=== PATIENT | female | born 1990 | race Caucasian/White ===

== ENCOUNTER 2018-01-06 22:59 | Emergency (ER) | payer BC, OTHER ==
--- NOTE | 2018-01-07 00:37 | EDM.PDOC ---
ED HPI GENERAL MEDICAL PROBLEM - General Chief Complaint: Lower Extremity Injury/Pain Stated Complaint: RIGHT FOOT PAIN Time Seen by Provider: 01/07/18 00:50 Source of Information: Reports: Patient History Limitations: Reports: No Limitations - History of Present Illness INITIAL COMMENTS - FREE TEXT/NARRATIVE: The patient states that she was playing softball around 21:45, when she slid into second base, injuring her right ankle. She is otherwise uninjured. No prior right ankle injury. The patient does not have a PCP. Right Ankle Pain Score (Numeric/FACES): 4 - Related Data Allergies Allergy/AdvReac Type Severity Reaction Status Date / Time Sulfa (Sulfonamide Allergy Other Verified 01/06/18 23:20 Antibiotics) Home Meds: Home Meds . 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 ED EXAM, GENERAL - Physical Exam Exam: See Below Exam Limited By: No Limitations General Appearance: Alert, WD/WN, No Apparent Distress Extremities: Other (There is mild swelling to the right lateral malleolus, with no associated erythema, ecchymosis, or abrasion. There is tenderness to the area swelling. There is also some tenderness without visible swelling to the dorsum of the right foot. Neurovascular status of the right lower extremity is intact.) Course - Vital Signs Last Recorded V/S: Last Vital Signs Temp 36.8 C 01/06/18 23:14 Pulse 97 01/06/18 23:14 Resp 18 01/06/18 23:14 BP 127/86 01/06/18 23:14 Pulse Ox 100 01/06/18 23:14 - Re-Assessments/Exams Free Text/Narrative Re-Assessment/Exam: 01/07/18 00:36 4-view radiographs of the right ankle appear to be grossly normal. No fracture or dislocation identified. Formal read per the Radiologist pending. 3-view radiographs of the right foot appear to be grossly normal. No fracture or dislocation identified. Formal read per the Radiologist pending. 01/07/18 01:09 X-ray results discussed with the patient and her friends. The patient appears to have a mild sprain to her right ankle, and strain to the dorsal aspect of her foot. I will have her placed into an Aircast, which I would like her to wear for a week, then begin ambulating without the Aircast, even though she may be a bit sore. I'm recommending she take rvzg-[id number] ibuprofen as needed for discomfort. Departure - Departure Time of Disposition: 01:10 Disposition: Home, Self-Care 01 Condition: Good Clinical Impression: Sprain of right ankle - Discharge Information Instructions: Ankle Sprain, [id number] Referrals: PCP,None [Primary Care Provider] - Forms: ED Department Discharge Additional Instructions: You were seen in the emergency room after injuring your right foot and ankle while sliding into second base. Workup in the ER included x-rays of your right ankle and foot, all of which were normal. There are no broken bones or dislocations. Based on your history and physical examination, you have a mild sprain to your right ankle, and mild strain to the back of your right foot. Elevate and ice her right foot is much as possible over the next 2 days, to help minimize swelling. You have been placed into an Aircast. Apply this each morning, and remove at bedtime. Wear the Aircast for 1 week, then begin ambulating without it, even if you are bit sore. Take lukw-jfg-swisbff ibuprofen as needed for discomfort. If any other problems, please do not hesitate to return to the ER.
--- NOTE | 2018-01-07 07:42 | CR ---
Right ankle: Four views of the right ankle were obtained. Comparison: No previous ankle study. Ankle mortise is symmetric. No fracture, dislocation or other bony abnormality is seen. Impression: 1. No abnormality is identified on right ankle exam. Diagnostic code #1
--- NOTE | 2018-01-07 07:42 | CR ---
Right foot: Three views of the right foot were obtained. Comparison: No prior right foot exam. Ununited os naviculare is incidentally noted. Joint spaces are maintained. No fracture, dislocation or other bony abnormality is seen. Small calcification is noted off the tarsometatarsal junction on the lateral view which is normal variant. Impression: 1. Incidental findings. Nothing acute is appreciated on right foot study. Diagnostic code #2
== END 2018-01-07 01:30 | disposition home or self-care (01) ==
LOC: JD.ED 22:59
DX: S93.401A Sprain of unspecified ligament of right ankle, initial encounter (principal); Z88.2 Allergy status to sulfonamides; X58.XXXA Exposure to other specified factors, initial encounter; Y93.64 Activity, baseball
CPT/HCPCS: 73610-26-RT; 73610-RT; 73630-26-RT; 73630-RT; 99283

== ENCOUNTER 2018-08-09 07:19 | Emergency (ER) | payer BC ==
--- NOTE | 2018-08-09 08:15 | EDM.PDOC ---
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 LMP (6 weeks 0 days by dates), . Blood type O-positive. She states that she has had 4 positive home tests. She states that she developed painless spotting last night, that got progressively heavier. She states that she is not passing clots, although is unable to estimate her bleeding with respect to the number of pads per hour. She developed pelvic cramping around 07:00 this morning, which has persisted. No recent fever, nausea, vomiting, constipation, diarrhea, or urinary symptoms. No symptoms with prior . The patient's Computer Forensic Specialist is Dr. Jane, although she has not yet seen him for this . - Related Data Allergies Allergy/AdvReac Type Severity Reaction Status Date / Time Sulfa (Sulfonamide Allergy Other Verified 08/09/18 07:33 Antibiotics) Home Meds: Home Meds . 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: : 2 Para: 1 - Past Surgical History HEENT Surgical History: Reports: Myringotomy w Tube(s) (bilateral), Tonsillectomy Female Surgical History: Reports: Cystoscopy (at 9 years old) Social & Family History - Family History Family Medical History: Noncontributory - Tobacco Use Smoking Status *Q: Never Smoker Second Hand Smoke Exposure: No - Caffeine Use Caffeine Use: Reports: Coffee, Soda - Alcohol Use Alcohol Use History: Yes Alcohol Use Frequency: Rarely - Recreational Drug Use Recreational Drug Use: No - Living Situation & Occupation Living situation: Reports: , with Significant Other (Boyfriend) 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 ED EXAM - Physical Exam Exam: See Below Exam Limited By: No Limitations General Appearance: Alert, WD/WN, No Apparent Distress Eye Exam: Bilateral Eye: EOMI, Normal Inspection Ears: Normal External Exam, Hearing Grossly Normal Nose: Normal Inspection Throat/Mouth: Normal Inspection, Normal Lips, Normal Voice, No Airway Compromise Head: Atraumatic, Normocephalic Neck: Normal Inspection, Full Range of Motion Respiratory/Chest: No Respiratory Distress, Lungs Clear, Normal Breath Sounds, No Accessory Muscle Use Cardiovascular: Normal Peripheral Pulses, Regular Rate, Rhythm, No Edema, No Gallop, No JVD, No Murmur, No Rub GI/Abdominal Exam: Normal Bowel Sounds, Soft, No Organomegaly, No Distention, No Abnormal Bruit, No Mass, Tender (Minimal suprapubic only. Nontender elsewhere.) Rectal Exam: Deferred (Female) Exam: Normal External Exam, Vaginal Bleeding (very slight). No: Tissue Present in Cervix/Vagina, Vaginal Discharge, Vaginal Lesions, Vaginal Tears Back Exam: Normal Inspection, Full Range of Motion, NT Extremities: Normal Inspection, Normal Range of Motion, No Pedal Edema, Normal Capillary Refill Neurological: Alert, Oriented, Normal Cognition, No Motor/Sensory Deficits Psychiatric: Normal Affect Skin Exam: Warm, Dry, Intact, Normal Color, No Rash Course - Vital Signs Last Recorded V/S: Last Vital Signs Temp 37.4 C 08/09/18 07:30 Pulse 88 08/09/18 07:30 Resp 16 08/09/18 07:30 BP 133/94 H 08/09/18 07:30 Pulse Ox 99 08/09/18 07:30 - Orders/Labs/Meds Orders: Active Orders 24 hr Category Date Time Status HCG QUANTITATIVE [CHEM] Stat Lab 08/09/18 08:55 Received - Re-Assessments/Exams Free Text/Narrative Re-Assessment/Exam: 08/09/18 08:14 The patient is 5 weeks 6 days gestation by dates, now with vaginal bleeding that includes passing clots, and pelvic cramping. I have ordered a quantitative hCG, and a transvaginal ultrasound, to rule out an ectopic , as well as to evaluate for an intrauterine gestational sac. The patient's blood type is O-positive, therefore RhoGAM is not indicated. 08/09/18 09:42 Transvaginal ultrasound is read by Dr. Lerma as: 1. Small cyst within the right ovary measuring 1.6 cm. 2. No intrauterine gestational is seen. No adnexal abnormalities are seen. With positive test, differential includes too early to see, miscarriage as well as nonvisualized (unlikely) ectopic . Note: Recommend serial beta hCGs and if increasing, recommend repeat pelvic ultrasound. 08/09/18 09:45 The laboratory has received the patient's blood sample, to run a quantitative hCG, however, they are experiencing some technical difficulties. It is not clear when the test will be resulted. 08/09/18 11:[address] Jane at 10:58. He would like me to perform a pelvic exam , to see if there is any tissue stuck in the cervix, and if so, to remove it. He would also like me to estimate the amount of bleeding. If it appears to be significant, and to call him back, as he may want to consider performing a D&C. In the meantime, he will have his office order an outpatient quantitative hCG for 08/12/2018, 08/16/2018, 08/19/2018, and 08/23/2018. He would then like to have the patient follow-up in his office this coming , 08/12/2018. The above plan was discussed with the patient, who is agreeable. 08/09/18 12:11 On pelvic examination, there was a small amount of both fresh and old appearing blood in the vagina. After cleaning the vagina with gauze, there appears to be a very small trickle of blood emanating from her closed, parous cervical os. No tissue was found in the vagina or cervical os. The quantitative hCG is still not back. Based on her history and physical examination, the patient has most likely suffered a completed spontaneous . As above, I will discharge the patient home, to follow-up with Dr. Jane this coming , 08/12/2018. I advised the patient to try to have her outpatient quantitative hCG drawn before she sees Dr. Jane, so that he can see both of the results. Departure - Departure Time of Disposition: 12:17 Disposition: Home, Self-Care 01 Condition: Good Clinical Impression: Complete spontaneous - Discharge Information *PRESCRIPTION DRUG MONITORING PROGRAM REVIEWED*: Not Applicable *COPY OF PRESCRIPTION DRUG MONITORING REPORT IN PATIENT RONN: Not Applicable Referrals: Manny Jane MD [Physician] - Forms: ED Department Discharge Additional Instructions: You were seen in the emergency room for vaginal bleeding and pelvic cramps while . Workup in the ER included a pelvic ultrasound, which showed a 1.6 cm right ovarian cyst, no intrauterine , and no ectopic , strongly suggesting that you have suffered a miscarriage. A quantitative hCG was ordered, but has not yet returned, due to technical problems in the lab. Your case was discussed with Dr. Jane. His office will order outpatient quantitative hCGs for , 08/12/2018, 08/16/2018, , 2018, and 08/23/2018. Dr. Jane would like you to follow up with him this coming , 08/12/2018. We recommend that you get your blood drawn at least one hour prior to seeing Dr. Jane, so that he can consider your test results when you see him. If any other problems, including increasing vaginal bleeding or pain, please do not hesitate to return to the ER. - My Orders Last 24 Hours: My Active Orders 08/09/18 08:55 HCG QUANTITATIVE [CHEM] Stat - Assessment/Plan Last 24 Hours: My Active Orders 08/09/18 08:55 HCG QUANTITATIVE [CHEM] Stat
--- NOTE | 2018-08-09 09:33 | US ---
First trimester obstetrical ultrasound: Multiple real-time images were obtained transvaginally. No intrauterine gestational sac is seen. Endometrial thickness is normal at 8 mm. Incidental nabothian cyst is present. Right ovary shows a cyst measuring 1.6 cm. No adnexal abnormalities are appreciated at this time. No free fluid is seen. Impression: 1. Small cyst within the right ovary measuring 1.6 cm. 2. No intrauterine gestational is seen. No adnexal abnormalities are seen. With positive test, differential includes too early to see, miscarriage as well as nonvisualized (unlikely) ectopic . Note: Recommend serial beta-hCGs and if increasing, recommend repeat pelvic ultrasound. Diagnostic code #2
== END 2018-08-09 12:27 | disposition home or self-care (01) ==
LOC: JD.ED 07:19
DX: O03.9 Complete or unspecified spontaneous abortion without complication (principal); Z88.2 Allergy status to sulfonamides; Z96.22 Myringotomy tube(s) status; Z90.89 Acquired absence of other organs; Z98.890 Other specified postprocedural states
CPT/HCPCS: 36415; 76817; 76817-26; 84702; 99282; 99284-25

== ENCOUNTER 2018-12-29 17:00 | Emergency (ER) | payer BC ==
[2018-12-29] MEDS ORDERED: Ondansetron 4 MG Tab.DIS PO ONE (18:04)
[2018-12-29] MEDS ORDERED: Acetaminophen/HYDROcodone 325-5 MG Tab PO ONE (18:04)
--- NOTE | 2018-12-29 18:08 | EDM.PDOC ---
ED HPI GENERAL MEDICAL PROBLEM - General Chief Complaint: Lower Extremity Injury/Pain Stated Complaint: FOOT PAIN Time Seen by Provider: 12/29/18 17:54 Source of Information: Reports: Patient, RN Notes Reviewed History Limitations: Reports: No Limitations - History of Present Illness INITIAL COMMENTS - FREE TEXT/NARRATIVE: The patient states that she drove from [place] today, getting out of the car periodically to walk around and stretch. It is noted that she is wearing flip-flops. She states that she developed left foot pain around 15:30, after tripping and falling onto her right leg. The pain is felt to the lateral aspect of her left foot, both dorsal and plantar, extending to the lateral aspect of her heel. It does not extend to her ankle or leg, however, she reports painful left ankle ROM. She does not recall injury to her left foot when she fell, or at any other time. No prior similar symptoms. No wkni-yyo-[id number] or home remedies for her symptoms thus far. The patient's PCP is ANA Mistry. Her Body Shop Manager is Dr. Manny Jane. 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: , Spontaneous (x 1) : 2 Para: 1 - Past Surgical History HEENT Surgical History: Reports: Myringotomy w Tube(s) (bilateral), Tonsillectomy Female Surgical History: Reports: Cystoscopy (at 9 years old) Social & Family History - Family History Family Medical History: Noncontributory - Tobacco Use Smoking Status *Q: Never Smoker Second Hand Smoke Exposure: No - Caffeine Use Caffeine Use: Reports: Coffee - Alcohol Use Alcohol Use History: Yes Alcohol Use Frequency: Rarely - Recreational Drug Use Recreational Drug Use: No - Living Situation & Occupation Living situation: Reports: , with Significant Other (Boyfriend), with Family (Daughter) 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 ED EXAM, GENERAL - Physical Exam Exam: See Below Exam Limited By: No Limitations General Appearance: Alert, WD/WN, Mild Distress (Appears uncomfortable) Extremities: Other (Mild swelling to the lateral aspect of the patient's left foot, particularly dorsal lateral aspect. There is considerable tenderness to palpation along the lateral aspect of the foot, both on the dorsal as well as plantar aspect, with less tenderness to the dorsal aspect of the foot. Pain is induced in the foot with both passive and active ROM at the ankle. The patient reports a tingling sensation to the lateral aspect of her foot, otherwise, the neurovascular status of the left lower extremity appears to be intact. An approximately 8 cm x 4 cm abrasion is noted to the anterior right leg.) Course - Vital Signs Last Recorded V/S: Last Vital Signs Temp 36.9 C 12/29/18 17:17 Pulse 81 12/29/18 17:17 Resp 18 12/29/18 17:17 BP 137/81 12/29/18 17:17 Pulse Ox 99 12/29/18 17:17 - Orders/Labs/Meds Meds: Medications Discontinued Medications Generic Name Dose Route Start Last Admin Trade Name Sybil PRN Reason Stop Dose Admin Hydrocodone Bitart/Acetaminophen 2 tab 12/29/18 18:04 12/29/18 18:23 Copake 325-5 Mg PO 12/29/18 18:05 2 tab ONETIME ONE Administration Ondansetron HCl 4 mg 12/29/18 18:04 12/29/18 18:22 Zofran Odt PO 12/29/18 18:05 4 mg ONETIME ONE Administration - Re-Assessments/Exams Free Text/Narrative Re-Assessment/Exam: 12/29/18 18:04 The patient's history and physical examination are most consistent with a stress fracture. While the patient does not recall a traumatic event to her left foot, she did fall earlier today, injuring her right leg, and she reports that she walked around from time to time, while driving back from [place] while wearing sandals. It is possible that she inadvertently stepped on a stone and fractured her left 5th metatarsal. I have ordered x-rays to evaluate. 12/29/18 20:15 4-view radiographs of the left foot appear to be normal. No fracture or dislocation identified. Formal read per the Radiologist pending. X-ray results discussed with the patient. The cause of her left foot pain is unclear. Since there is no fracture, the patient does not require a splint, however, I will fit her for crutches. She will receive her a prescription for some Copake and Zofran. I would like her to contact the office of Dr. Taylor in the morning, to make an appointment to be seen as soon as possible. Departure - Departure Time of Disposition: 20:18 Disposition: Home, Self-Care 01 Condition: Good Clinical Impression: Left foot pain - Discharge Information *PRESCRIPTION DRUG MONITORING PROGRAM REVIEWED*: Not Applicable *COPY OF PRESCRIPTION DRUG MONITORING REPORT IN PATIENT RONN: Not Applicable Prescriptions: Acetaminophen/HYDROcodone [Copake 325-5 MG] 1 - 2 tab PO Q6H PRN #12 tablet PRN Reason: Pain (Severe 7-10) Ondansetron [Zofran ODT] 1 tab PO Q8H PRN #10 tab.dis PRN Reason: Nausea/Vomiting Instructions: Ankle Sprain, [id number] Referrals: Juan Taylor MD [Physician] - Kecia Baron PA-C [Primary Care Provider] - Manny Jane MD [Physician] - Forms: ED Department Discharge Additional Instructions: You were seen in the emergency room for left foot pain and mild swelling. Workup in the ER included x-rays of your left foot, which returned normal. No fracture or dislocation was seen. The cause of your foot pain is unclear. We recommend that you ice and elevate your left foot as much as possible. You have been fitted with crutches. Use them whenever you need to get around. Take hgzr-[id number] ibuprofen, 2-3 tablets (400-600 mg) every 8 hours, with food, as needed for discomfort. You may take 1-2 tablets of the prescription opioid Copake up to every 6 hours, as needed for pain not relieved by ibuprofen. If you take Copake, do not drive for 10 hours afterwards. Copake may cause constipation, so consider taking a stool softener. Dissolve one tablet of the anti-nausea medicine Zofran on your tongue up to every 8 hours, as needed for nausea/vomiting. Follow-up with the Orthopedic Surgeon Dr. Juan Taylor at the next available appointment, for further evaluation. If any other problems, please do not hesitate to return to the ER.
--- NOTE | 2018-12-30 08:57 | CR ---
Left foot: Four views of the left foot were obtained. Comparison: No prior left foot exam. Joint spaces are preserved. No fracture, dislocation or other bony abnormality is seen. No periosteal reaction is seen. Impression: 1. No abnormality is identified on left foot exam. If patient remains symptomatic, recommend repeat study in 10-14 days. Diagnostic code #1
== END 2018-12-29 20:55 | disposition home or self-care (01) ==
LOC: JD.ED 17:00
DX: M79.672 Pain in left foot (principal); Z88.2 Allergy status to sulfonamides
CPT/HCPCS: 73630; 99283; A9270

== ENCOUNTER 2021-07-09 11:31 | Emergency (ER) | payer BC ==
[2021-07-09] MEDS ORDERED: Sodium Chloride 0.9% 10 ML Syringe FLUSH PRN (12:05)
[2021-07-09] MEDS ORDERED: Ondansetron 4 MG/2 ML SDV IVPUSH ONE (12:05)
[2021-07-09] MEDS ORDERED: Metoclopramide 10 MG/2 ML SDV IVPUSH ONE (12:10)
--- NOTE | 2021-07-09 12:11 | EDM.PDOC ---
ED HPI GENERAL MEDICAL PROBLEM - General Chief Complaint: Gastrointestinal Problem Stated Complaint: HEART PALP VOMITING SHAKEY Time Seen by Provider: 07/09/21 12:01 Source of Information: Reports: Patient, RN Notes Reviewed History Limitations: Reports: No Limitations - History of Present Illness INITIAL COMMENTS - FREE TEXT/NARRATIVE: Patient is a 30-year-old female who presents to the ER for evaluation of her GI distress. Patient states she is about 9 weeks . She is not having any abdomen pain, or any sort of vaginal bleeding or discharge. States that for the past 2 or 3 days, she has not been able to keep down anything much for food or fluid she has been trying to eat toast and keep hydrated with water, but nothing has stayed down. E[employer]K [employer]PER[employer] is Dr. Powell, and she is on Unisom at night for nausea. Patient states she is feel dizzy, lightheaded, had some slight heart palpitations, states that she has a sore throat but states she has been vomiting quite a bit and getting green bile type emesis out. Having some loose stools again that is green and bilious. 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 No fevers but chills, no cough no shortness of breath. 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 - Past Surgical History HEENT Surgical History: Reports: Myringotomy w Tube(s), Tonsillectomy Female Surgical History: Reports: Cystoscopy Other Female Surgeries/Procedures: bladder surgery Social & Family History - Family History Family Medical History: No Pertinent Family History - Tobacco Use Tobacco Use Status *Q: Never Tobacco User Second Hand Smoke Exposure: No - Caffeine Use Caffeine Use: Reports: Coffee - Recreational Drug Use Recreational Drug Use: No - Living Situation & Occupation Living situation: Reports: , with Significant Other (Boyfriend), with Family (Daughter) 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 ED EXAM, GI/ABD - Physical Exam Exam: See Below Exam Limited By: No Limitations General Appearance: Alert, WD/WN, No Apparent Distress Respiratory/Chest: No Respiratory Distress, Lungs Clear, Normal Breath Sounds, No Accessory Muscle Use, Chest Non-Tender Cardiovascular: Normal Peripheral Pulses, Regular Rate, Rhythm, No Edema GI/Abdominal Exam: Normal Bowel Sounds, Soft, No Distention, No Mass, Tender (generalized discomfort) Extremities: Normal Inspection, Normal Capillary Refill Neurological: Alert, Oriented, Normal Cognition, No Motor/Sensory Deficits Psychiatric: Normal Affect, Normal Mood Skin Exam: Warm, Dry, Intact, Normal Color, No Rash Course - Vital Signs Last Recorded V/S: Last Vital Signs Temp 97.5 F 07/09/21 11:44 Pulse 92 07/09/21 11:44 Resp 16 07/09/21 11:44 BP 123/85 07/09/21 11:44 Pulse Ox 100 07/09/21 11:44 - Orders/Labs/Meds Orders: Active Orders 24 hr Category Date Time Status Peripheral IV Care [RC] . DIRECTED Care 07/09/21 12:06 Ordered Sodium Chloride 0.9% [Normal Saline] 1,000 ml Med 07/09/21 12:15 Ordered IV ASDIRECTED Sodium Chloride 0.9% [Saline Flush] Med 07/09/21 21:00 Ordered 10 ml FLUSH 0900,2100 Sodium Chloride 0.9% [Saline Flush] Med 07/09/21 12:05 Ordered 10 ml FLUSH ASDIRECTED PRN Peripheral IV Insertion Adult [OM.PC] Stat Oth 07/09/21 12:05 Ordered Medication Orders Sodium Chloride (Normal Saline) 1,000 mls @ 999 mls/hr IV ASDIRECTED MACARIO Last Admin: 07/09/21 12:20 Dose: 999 mls/hr Documented by: [email or web address] Sodium Chloride (Sodium Chloride 0.9% 10 Ml Syringe) 10 ml FLUSH 0900,2100 MACARIO Sodium Chloride (Sodium Chloride 0.9% 10 Ml Syringe) 10 ml FLUSH ASDIRECTED PRN PRN Reason: Keep Vein Open Last Admin: 07/09/21 12:20 Dose: 10 ml Documented by: [id number] Labs: Laboratory Tests 07/09/21 07/09/21 Range/Units 12:26 12:26 WBC 11.87 H (3.98-10.04) K/mm3 RBC 4.67 (3.98-5.22) M/mm3 Hgb 13.6 (11.2-15.7) gm/dl Hct 39.5 (34.1-44.9) % MCV 84.6 (79.4-94.8) fl MCH 29.1 (25.6-32.2) pg MCHC 34.4 (32.2-35.5) g/dl RDW Std Deviation 37.4 (36.4-46.3) fL Plt Count 189 (182-369) K/mm3 MPV 8.5 L (9.4-12.3) fl Neut % (Auto) 78.4 H (34.0-71.1) % Lymph % (Auto) 12.0 L (19.3-51.7) % Milam % (Auto) 8.8 (4.7-12.5) % Eos % (Auto) 0.3 L (0.7-5.8) Baso % (Auto) 0.2 (0.1-1.2) % Neut # (Auto) 9.33 H (1.56-6.13) K/mm3 Lymph # (Auto) 1.42 (1.18-3.74) K/mm3 Milam # (Auto) 1.04 H (0.24-0.36) K/mm3 Eos # (Auto) 0.03 L (0.04-0.36) K/mm3 Baso # (Auto) 0.02 (0.01-0.08) K/mm3 Sodium 140 (136-145) mEq/L Potassium 3.6 (3.5-5.1) mEq/L Chloride 104 (98-107) mEq/L Carbon Dioxide 25 (21-32) mEq/L Anion Gap 14.6 (5-15) BUN 12 (7-18) mg/dL Creatinine 0.7 (0.55-1.02) mg/dL Est Cr Clr Drug Dosing TNP Estimated GFR (MDRD) > 60 (>60) mL/min BUN/Creatinine Ratio 17.1 (14-18) Glucose 84 (70-99) mg/dL Calcium 8.7 (8.5-10.1) mg/dL Total Bilirubin 0.6 (0.2-1.0) mg/dL AST 16 (15-37) U/L ALT 21 (14-59) U/L Alkaline Phosphatase 61 (46-116) U/L C-Reactive Protein 0.5 (<1.0) mg/dL Total Protein 7.1 (6.4-8.2) g/dl Albumin 3.9 (3.4-5.0) g/dl Globulin 3.2 gm/dL Albumin/Globulin Ratio 1.2 (1-2) Lipase 41 L (73-393) U/L Meds: Medications Generic Name Dose Route Start Last Admin Trade Name Sybil PRN Reason Stop Dose Admin Sodium Chloride 1,000 mls @ 999 mls/hr 07/09/21 12:15 07/09/21 12:20 Normal Saline IV 999 mls/hr ASDIRECTED MACARIO Administration Sodium Chloride 10 ml 07/09/21 21:00 Sodium Chloride 0.9% 10 Ml Syringe FLUSH 0900,2100 MACARIO Sodium Chloride 10 ml 07/09/21 12:05 07/09/21 12:20 Sodium Chloride 0.9% 10 Ml Syringe FLUSH 10 ml ASDIRECTED PRN Administration Keep Vein Open Discontinued Medications Generic Name Dose Route Start Last Admin Trade Name Sybil PRN Reason Stop Dose Admin Metoclopramide HCl 10 mg 07/09/21 12:10 07/09/21 12:20 Metoclopramide 10 Mg/2 Ml Sdv IVPUSH 07/09/21 12:11 10 mg ONETIME ONE Administration Ondansetron HCl 4 mg 07/09/21 12:05 07/09/21 12:41 Ondansetron 4 Mg/2 Ml Sdv IVPUSH 07/09/21 12:06 Not Given ONETIME ONE - Re-Assessments/Exams Free Text/Narrative Re-Assessment/Exam: 07/09/21 12:10 Patient presents to the ER for evaluation of her nausea and vomiting and other GI issues. We will go ahead and get IV started give her some fluids, check some labs and get her something for nausea hopefully this can keep it under control. 12/14/21 13:26 Patient states she is feeling better after the Reglan and fluids. Labs are all unremarkable at this time. We will go ahead and get the patient home and she would like to go home and rest. I will give her a prescription for Reglan and she will have to follow-up with Dr. Powell for continuation of this. Patient verbalized understanding. Departure - Departure Time of Disposition: 13:28 Disposition: Home, Self-Care 01 Condition: Good Clinical Impression: Nausea and vomiting Qualifiers: Vomiting type: bilious vomiting Qualified Code(s): R11.14 - Bilious vomiting - Discharge Information *PRESCRIPTION DRUG MONITORING PROGRAM REVIEWED*: No *COPY OF PRESCRIPTION DRUG MONITORING REPORT IN PATIENT RONN: No Instructions: Nausea and Vomiting, Adult, [id number] Referrals: Alfred Powell MD [Primary Care Provider] - Forms: ED Department Discharge Additional Instructions: You have been evaluated in the ED for nausea/vomiting/diarrhea. You have received IV fluid in the ED to help with the dehydration from the vomiting and diarrhea. Over the next 24-48 hours please try to limit diet to clear liquids and advance as tolerated to a bland diet to alleviate symptoms of nausea/vomiting/diarrhea. You were given a prescription for Reglan, this is an antinausea medication that you may take up to 4 times a day as needed for ongoing nausea. Since you are having quite exquisite nausea and vomiting I would recommend that you at least t fay it over the next few days while you are feeling at your worst, to make sure that you can indeed keep food and fluids down. This medication was electronically sent to the [facility] pharmacy located on [address]. 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 Please return to the ED if your symptoms should change or worsen. Sepsis Event Note (ED) - Evaluation Sepsis Screening Result: No Definite Risk - Focused Exam Vital Signs: Vital Signs Temp Pulse Resp BP Pulse Ox 07/09/21 11:44 97.5 F 92 16 123/85 100 - My Orders Last 24 Hours: My Active Orders 07/09/21 12:05 Sodium Chloride 0.9% [Saline Flush] 10 ml FLUSH ASDIRECTED PRN Peripheral IV Insertion Adult [OM.PC] Stat 07/09/21 12:06 Peripheral IV Care [RC] . DIRECTED 07/09/21 12:15 Sodium Chloride 0.9% [Normal Saline] 1,000 ml IV ASDIRECTED 07/09/21 21:00 Sodium Chloride 0.9% [Saline Flush] 10 ml FLUSH 0900,2099 - Assessment/Plan Last 24 Hours: My Active Orders 07/09/21 12:05 Sodium Chloride 0.9% [Saline Flush] 10 ml FLUSH ASDIRECTED PRN Peripheral IV Insertion Adult [OM.PC] Stat 07/09/21 12:06 Peripheral IV Care [RC] . DIRECTED 07/09/21 12:15 Sodium Chloride 0.9% [Normal Saline] 1,000 ml IV ASDIRECTED 07/09/21 21:00 Sodium Chloride 0.9% [Saline Flush] 10 ml FLUSH 899,2099
[2021-07-09] MEDS ORDERED: Sodium Chloride 0.9% 1,000 ML IV SCH (12:15)
[2021-07-09] MEDS ORDERED: Sodium Chloride 0.9% 10 ML Syringe FLUSH SCH (21:00)
== END 2021-07-09 14:21 | disposition home or self-care (01) ==
LOC: JD.ED 11:31
DX: O21.9 Vomiting of pregnancy, unspecified (principal); Z88.2 Allergy status to sulfonamides
CPT/HCPCS: 36415; 80053; 83690; 85025; 86140; 96374; 99284; J2765; J7030

== ENCOUNTER 2022-02-11 08:00 | Inpatient (IN) | payer BC ==
[2022-02-13] MEDS ORDERED: Lactated Ringers 1,000 ML IV SCH (05:30)
[2022-02-13] MEDS ORDERED: Sodium Chloride 0.9% 10 ML Syringe FLUSH PRN (06:00)
[2022-02-13] MEDS ORDERED: Citric Acid/Sodium Citrate Solution 30 ML Cup PO ONE (06:00)
[2022-02-13] MEDS ORDERED: Metoclopramide 10 MG/2 ML SDV IVPUSH ONE (06:00)
[2022-02-13] MEDS ORDERED: Ondansetron 4 MG/2 ML SDV ONE (06:42)
[2022-02-13] MEDS ORDERED: Oxytocin 10 Units/1 ML SDV ONE ×2 (06:42→06:43)
[2022-02-13] MEDS ORDERED: Lactated Ringers 2,000 ML ONE (06:42)
[2022-02-13] MEDS ORDERED: Ketorolac 30 MG/ML SDV ONE (06:42)
[2022-02-13] MEDS ORDERED: Morphine PF 10 MG/10 ML SDV ONE (06:45)
[2022-02-13] MEDS ORDERED: ceFAZolin 2 GM in Sodium Chloride 0.9% 50 ML IV ONE (07:30)
[2022-02-13] MEDS ORDERED: Oxytocin/Lactated Ringers 20 UNIT/1,000 ML BAG IV SCH (08:00)
[2022-02-13] MEDS ORDERED: HYDROmorphone 0.5 MG/0.5 ML Syringe IVPUSH PRN (08:12)
[2022-02-13] MEDS ORDERED: fentaNYL 100 MCG/2 ML SDV IVPUSH PRN (08:12)
[2022-02-13] MEDS ORDERED: Ondansetron 4 MG/2 ML SDV IVPUSH PRN (08:12)
[2022-02-13] MEDS ORDERED: Bupivacaine 0.5% 30 ML SDV ONE (08:25)
[2022-02-13] MEDS ORDERED: Ondansetron 4 MG/2 ML SDV IV PRN (12:50)
[2022-02-13] MEDS ORDERED: Dextrose 5%-Lactated Ringers 1,000 ML IV SCH (12:50)
[2022-02-13] MEDS ORDERED: Naloxone 0.4 MG/ML SDV IVPUSH PRN (12:50)
[2022-02-13] MEDS ORDERED: diphenhydrAMINE 50 MG/ML SDV IVPUSH PRN (12:50)
[2022-02-13] MEDS ORDERED: ePHEDrine 50 MG/ML SDV IVPUSH PRN (12:50)
[2022-02-13] MEDS ORDERED: Acetaminophen/oxyCODONE 325-5 MG Tab PO PRN (12:50)
[2022-02-13] MEDS: Simethicone 80 MG Tab.Chew PO SCH ×3 (18:28→21:18)
[2022-02-13] MEDS: Docusate Sodium 100 MG Cap PO SCH ×2 (18:30→21:18)
[2022-02-13] MEDS: Ibuprofen 600 MG Tab PO PRN (21:19)
[2022-02-14] MEDS: Acetaminophen/oxyCODONE 325-5 MG Tab PO PRN ×3 (04:33→20:47)
[2022-02-14] MEDS: Docusate Sodium 100 MG Cap PO SCH ×3 (05:27→20:48)
[2022-02-14] MEDS: Prenatal Multivitamin with Calcium/Folic Acid/Iron Tab PO SCH (10:58)
[2022-02-14] MEDS: Simethicone 80 MG Tab.Chew PO SCH ×4 (10:58→20:48)
[2022-02-14] MEDS: Sodium Chloride 0.9% 10 ML Syringe FLUSH SCH (12:23)
[2022-02-14] MEDS: Ibuprofen 600 MG Tab PO PRN ×2 (13:59→17:25)
[2022-02-15] MEDS: Ibuprofen 600 MG Tab PO PRN ×2 (00:03→07:01)
[2022-02-15] MEDS: Acetaminophen/oxyCODONE 325-5 MG Tab PO PRN ×3 (01:00→09:53)
[2022-02-15] MEDS: Simethicone 80 MG Tab.Chew PO SCH ×2 (09:52→14:14)
[2022-02-15] MEDS: Prenatal Multivitamin with Calcium/Folic Acid/Iron Tab PO SCH (09:52)
[2022-02-15] MEDS: Docusate Sodium 100 MG Cap PO SCH (09:52)
== END 2022-02-15 12:20 | disposition home or self-care (01) | DRG 540 ==
LOC: JD.OB 02-13 05:06
PROVIDERS: ADMIT Obstetrics & Gynecology; ATTEND Obstetrics & Gynecology
PROC: 10D00Z1 Extraction of Products of Conception, Low, Open Approach (ICD-10-PCS; principal; 2022-02-13)
DX: O80 Encounter for full-term uncomplicated delivery (principal); Z87.59 Personal history of other complications of pregnancy, childbirth and the puerperium; Z92.89 Personal history of other medical treatment; Z88.2 Allergy status to sulfonamides; Z79.82 Long term (current) use of aspirin; Z3A.39 39 weeks gestation of pregnancy; Z37.0 Single live birth
CPT/HCPCS: 36415; 59025; 85025; 86592; 86850; 86900; 86901; A9270-GY; J1885; J2274; J2405; J2590; J2765; J3490; J7120; J7121

== ENCOUNTER 2022-07-06 01:49 | Emergency (ER) | payer BC | END 2022-07-06 03:00 | disposition home or self-care (01) | LOC: JD.ED 01:49 | DX: H65.03 Acute serous otitis media, bilateral (principal); Z88.2 Allergy status to sulfonamides; Z79.899 Other long term (current) drug therapy | CPT/HCPCS: 99282 ==

== ENCOUNTER 2024-04-15 05:27 | Inpatient (IN) | payer BC ==
[2024-04-15] MEDS: Ketorolac 15 MG/ML SDV IVPUSH ONE (06:33)
[2024-04-15] MEDS: Sodium Chloride 0.9% 1,000 ML IV ONE (06:33)
[2024-04-15] MEDS: Iopamidol 612 MG/ML 100 ML Bottle IVPUSH ONE (06:46)
[2024-04-15 07:00] LABS: BASOPHILS PERCENT AUTO 0.3 % (0.0-1.0); EOSINOPHILS PERCENT AUTO 0.4 % (0.0-6.0); HEMATOCRIT 46.1 % (37.0-47.0); IMMATURE GRAN ABSOLUTE AUTO 0.04 K/mm3 (0.00-0.05); IMMATURE GRAN PERCENT AUTO 0.4 % (0.0-0.4); LYMPHOCYTES ABSOLUTE AUTO 1.5 K/mm3 (1.0-4.8); MEAN CORPUSCULAR HEMOGLOBIN 26.1 pg (28.0-32.0); MEAN CORPUSCULAR HGB CONC 32.3 g/dl (32.0-36.0); MEAN PLATELET VOLUME 8.5 fl (9.4-12.3); MONOCYTES ABSOLUTE AUTO 0.5 K/mm3 (0.0-0.8); NEUTROPHILS ABSOLUTE AUTO 7.5 K/mm3 (1.8-7.7); NEUTROPHILS PERCENT AUTO 77.9 % (41.0-71.0); RED BLOOD CELL COUNT 5.71 M/mm3 (4.10-5.30); WHITE BLOOD CELL COUNT,WBC 9.59 K/mm3 (3.9-11.3)
[2024-04-15 07:05] LABS: HEMOGLOBIN 14.9 gm/dl (12.0-16.0); MEAN CORPUSCULAR VOLUME 80.7 fl (83.0-99.0); PLATELET COUNT,PLT 201 K/mm3 (150-400)
[2024-04-15 07:06] LABS: A/G RATIO 1.1 (1-2); ALANINE AMINOTRANSFERASE,ALT 24 U/L (14-59); ALBUMIN 4.2 g/dl (3.4-5.0); ALKALINE PHOSPHATASE 93 U/L (46-116); ANION GAP 13.8 (5-15); ASPARTATE AMNIOTRANSFERASE,AST 17 U/L (15-37); BILIRUBIN TOTAL 0.5 mg/dL (0.2-1.0); BLOOD UREA NITROGEN,BUN 18 mg/dL (7-18); CALCIUM 9.6 mg/dL (8.5-10.1); CARBON DIOXIDE,CO2 26 mEq/L (21-32); CHLORIDE,CL 107 mEq/L (98-107); CREATININE 0.9 mg/dL (0.55-1.02); ESTIMATED GFR 87 mL/min (>60); GLUCOSE RANDOM 102 mg/dL (70-99); LIPASE 22 U/L (16-77); MAGNESIUM 1.8 mg/dL (1.8-2.4); POTASSIUM,K 3.8 mEq/L (3.5-5.1); PROTEIN TOTAL,TP 8.2 g/dl (6.4-8.2); SODIUM,NA 143 mEq/L (136-145)
[2024-04-15 07:33] LABS: APPEARANCE,URINE CLEAR (Clear); BILIRUBIN,URINE NEGATIVE (Negative); COLOR,URINE YELLOW (Yellow); GLUCOSE,URINE NEGATIVE (Negative); KETONES,URINE 2+ (Negative); LEUKOCYTE ESTERASE,URINE NEGATIVE (Negative); NITRITE,URINE NEGATIVE (Negative); OCCULT BLOOD,URINE NEGATIVE (Negative); PROTEIN,URINE NEGATIVE (Negative); UROBILINOGEN,URINE 0.2 (0.2-1.0)
[2024-04-15] MEDS ORDERED: Naloxone 0.4 MG/ML SDV IVPUSH PRN ×2 (07:59→08:22)
[2024-04-15] MEDS ORDERED: Piperacillin/Tazobactam 3.375 GM in Sodium Chloride 0.9% 100 ML IV ONE (08:20)
[2024-04-15] MEDS ORDERED: Ondansetron 4 MG/2 ML SDV IV PRN (08:22)
[2024-04-15] MEDS: Sodium Chloride 0.9% 10 ML Syringe FLUSH PRN (08:25)
[2024-04-15] MEDS: Morphine 4 MG/ML Syringe IVPUSH ONE (08:25)
[2024-04-15] MEDS: Piperacillin/Tazobactam 4.5 GM in Sodium Chloride 0.9% 100 ML IV ONE (08:46)
[2024-04-15] MEDS: Ketorolac 30 MG/ML SDV IVPUSH SCH ×2 (11:10→17:38)
[2024-04-15] MEDS: Lactated Ringers 1,000 ML IV SCH (11:10)
[2024-04-15] MEDS: Heparin Sodium 5,000 Units/ML Vial SUBCUT SCH (11:11)
[2024-04-15] MEDS: HYDROmorphone 0.5 MG/0.5 ML Syringe IVPUSH PRN (16:01)
[2024-04-15] MEDS: Piperacillin/Tazobactam 4.5 GM in Sodium Chloride 0.9% 100 ML IV SCH ×2 (16:18→16:52)
[2024-04-16 06:02] LABS: BASOPHILS ABSOLUTE AUTO 0.1 K/mm3 (0.0-0.2); BASOPHILS PERCENT AUTO 0.8 % (0.0-1.0); EOSINOPHILS ABSOLUTE AUTO 0.1 K/mm3 (0.0-0.4); EOSINOPHILS PERCENT AUTO 1.6 % (0.0-6.0); HEMATOCRIT 39.1 % (37.0-47.0); IMMATURE GRAN ABSOLUTE AUTO 0.04 K/mm3 (0.00-0.05); IMMATURE GRAN PERCENT AUTO 0.5 % (0.0-0.4); MEAN CORPUSCULAR HEMOGLOBIN 26.4 pg (28.0-32.0); MEAN CORPUSCULAR HGB CONC 31.7 g/dl (32.0-36.0); MEAN CORPUSCULAR VOLUME 83.2 fl (83.0-99.0); MEAN PLATELET VOLUME 8.6 fl (9.4-12.3); MONOCYTES ABSOLUTE AUTO 0.6 K/mm3 (0.0-0.8); MONOCYTES PERCENT AUTO 8.5 % (0.0-8.0); NEUTROPHILS ABSOLUTE AUTO 4.7 K/mm3 (1.8-7.7); NEUTROPHILS PERCENT AUTO 62.6 % (41.0-71.0); PLATELET COUNT,PLT 164 K/mm3 (150-400); WHITE BLOOD CELL COUNT,WBC 7.57 K/mm3 (3.9-11.3)
[2024-04-16 06:06] LABS: HEMOGLOBIN 12.4 gm/dl (12.0-16.0)
[2024-04-16] MEDS: Levothyroxine 75 MCG Tab PO SCH (06:15)
[2024-04-16 06:20] LABS: ANION GAP 19.6 (5-15); CALCIUM 8.8 mg/dL (8.5-10.1); EST CRCL DRUG DOSING (CG) 81.47 mL/min; MAGNESIUM 1.9 mg/dL (1.8-2.4); PHOSPHORUS 4.3 mg/dL (2.6-4.7); POTASSIUM,K 3.6 mEq/L (3.5-5.1)
[2024-04-16] MEDS: NORETHINDRONE 0.35 MG PO SCH (08:29)
[2024-04-17 06:12] LABS: BASOPHILS PERCENT AUTO 0.6 % (0.0-1.0); EOSINOPHILS ABSOLUTE AUTO 0.1 K/mm3 (0.0-0.4); EOSINOPHILS PERCENT AUTO 2.6 % (0.0-6.0); HEMATOCRIT 34.3 % (37.0-47.0); IMMATURE GRAN ABSOLUTE AUTO 0.01 K/mm3 (0.00-0.05); IMMATURE GRAN PERCENT AUTO 0.2 % (0.0-0.4); LYMPHOCYTES ABSOLUTE AUTO 1.7 K/mm3 (1.0-4.8); LYMPHOCYTES PERCENT AUTO 31.8 % (24.0-44.0); MEAN CORPUSCULAR HEMOGLOBIN 26.3 pg (28.0-32.0); MEAN CORPUSCULAR HGB CONC 32.1 g/dl (32.0-36.0); MEAN CORPUSCULAR VOLUME 81.9 fl (83.0-99.0); MEAN PLATELET VOLUME 8.7 fl (9.4-12.3); MONOCYTES ABSOLUTE AUTO 0.6 K/mm3 (0.0-0.8); MONOCYTES PERCENT AUTO 10.4 % (0.0-8.0); NEUTROPHILS ABSOLUTE AUTO 2.9 K/mm3 (1.8-7.7); NEUTROPHILS PERCENT AUTO 54.4 % (41.0-71.0); PLATELET COUNT,PLT 151 K/mm3 (150-400); RED BLOOD CELL COUNT 4.19 M/mm3 (4.10-5.30); WHITE BLOOD CELL COUNT,WBC 5.31 K/mm3 (3.9-11.3)
[2024-04-17 06:49] LABS: ANION GAP 13.2 (5-15); CALCIUM 8.4 mg/dL (8.5-10.1); CREATININE 1.1 mg/dL (0.55-1.02); EST CRCL DRUG DOSING (CG) 74.07 mL/min; MAGNESIUM 1.6 mg/dL (1.8-2.4); PHOSPHORUS 3.8 mg/dL (2.6-4.7); POTASSIUM,K 3.2 mEq/L (3.5-5.1)
[2024-04-17] MEDS: Sodium Chloride 0.9% 100 ML ONE (09:40)
[2024-04-17] MEDS: Potassium Chloride 20 MEQ Tab.ER PO ONE (10:00)
[2024-04-17] MEDS: Magnesium Sulfate/Water 4 GM in Premix Bag 1 BAG IV ONE (10:01)
[2024-04-17] MEDS: Lidocaine 4% 1 each Patch TOP SCH (10:11)
== END 2024-04-17 16:46 | disposition home or self-care (01) | DRG 254 ==
LOC: JD.ED 05:27 → JD.MS 08:22
PROVIDERS: ADMIT Surgery; ATTEND Surgery
DX: K46.0 Unspecified abdominal hernia with obstruction, without gangrene (principal); E03.9 Hypothyroidism, unspecified; Z88.2 Allergy status to sulfonamides; Z79.2 Long term (current) use of antibiotics; Z79.899 Other long term (current) drug therapy; Z86.16 Personal history of COVID-19; Z98.890 Other specified postprocedural states; Z90.89 Acquired absence of other organs
CPT/HCPCS: 36415; 74177; 74177-26; 80048; 80053; 81003; 83605; 83690; 83735; 84100; 84703; 85025; 96361; 96374; 99285-25; A9270-GY; J1170; J1644; J1885; J2270; J2543; J3475; J3490; J7030; J7120; Q9967

== ENCOUNTER 2024-05-06 16:30 | Emergency (ER) | payer BC ==
[2024-05-06] MEDS ORDERED: Naloxone 0.4 MG/ML SDV IVPUSH PRN (17:01)
[2024-05-06] MEDS: HYDROmorphone 0.5 MG/0.5 ML Syringe IVPUSH ONE (17:33)
[2024-05-06 19:46] LABS: BASOPHILS ABSOLUTE AUTO 0.1 K/mm3 (0.0-0.2); BASOPHILS PERCENT AUTO 0.5 % (0.0-1.0); EOSINOPHILS ABSOLUTE AUTO 0.2 K/mm3 (0.0-0.4); EOSINOPHILS PERCENT AUTO 1.6 % (0.0-6.0); HEMATOCRIT 42.2 % (37.0-47.0); HEMOGLOBIN 13.8 gm/dl (12.0-16.0); IMMATURE GRAN ABSOLUTE AUTO 0.03 K/mm3 (0.00-0.05); IMMATURE GRAN PERCENT AUTO 0.3 % (0.0-0.4); LYMPHOCYTES ABSOLUTE AUTO 2.7 K/mm3 (1.0-4.8); LYMPHOCYTES PERCENT AUTO 28.9 % (24.0-44.0); MEAN CORPUSCULAR HEMOGLOBIN 26.6 pg (28.0-32.0); MEAN CORPUSCULAR HGB CONC 32.7 g/dl (32.0-36.0); MEAN CORPUSCULAR VOLUME 81.3 fl (83.0-99.0); MEAN PLATELET VOLUME 8.4 fl (9.4-12.3); MONOCYTES ABSOLUTE AUTO 0.6 K/mm3 (0.0-0.8); MONOCYTES PERCENT AUTO 6.7 % (0.0-8.0); NEUTROPHILS ABSOLUTE AUTO 5.7 K/mm3 (1.8-7.7); PLATELET COUNT,PLT 186 K/mm3 (150-400); RED BLOOD CELL COUNT 5.19 M/mm3 (4.10-5.30); WHITE BLOOD CELL COUNT,WBC 9.19 K/mm3 (3.9-11.3)
[2024-05-06 20:07] LABS: A/G RATIO 1.2 (1-2); ALBUMIN 4.2 g/dl (3.4-5.0); ANION GAP 14.1 (5-15); BILIRUBIN TOTAL 0.4 mg/dL (0.2-1.0); BUN/CREATININE RATIO 16.3 (14-18); C-REACTIVE PROTEIN 0.42 mg/dL (<0.30); CALCIUM 9.2 mg/dL (8.5-10.1); CREATININE 0.8 mg/dL (0.55-1.02); EST CRCL DRUG DOSING (CG) 101.84 mL/min; POTASSIUM,K 4.1 mEq/L (3.5-5.1); PROTEIN TOTAL,TP 7.8 g/dl (6.4-8.2)
== END 2024-05-06 21:25 | disposition home or self-care (01) ==
LOC: JD.ED 16:30
DX: K43.2 Incisional hernia without obstruction or gangrene (principal); E03.9 Hypothyroidism, unspecified; Z86.16 Personal history of COVID-19; Z88.2 Allergy status to sulfonamides
CPT/HCPCS: 36415; 74177; 80053; 85025; 86140; 96374; 99284; J1171

== ENCOUNTER 2024-05-11 08:57 | Inpatient (IN) | payer BC ==
[~2024-05-11 08:57] MED LIST: Dexamethasone 4 MG/ML 5 ML MDV ONE; Ketorolac 30 MG/ML SDV ONE; Midazolam 1 MG/ML 2 ML SDV ONE; Ondansetron 4 MG/2 ML SDV ONE; Propofol 200 MG/20 ML SDV ONE; Rocuronium 50 MG/5 ML Vial ONE; Sodium Chloride 0.9% 10 ML Syringe FLUSH PRN; dexmedeTOMIDine HCl 200 MCG/2 ML SDV ONE; fentaNYL 250 MCG/5 ML SDV ONE
[2024-05-11] MEDS ORDERED: diphenhydrAMINE 50 MG/ML SDV ONE (09:10)
[2024-05-11] MEDS ORDERED: ceFAZolin 2 GM Vial ONE (09:11)
[2024-05-11] MEDS ORDERED: Propofol 200 MG/20 ML SDV ONE ×10 (09:24→12:15)
[2024-05-11] MEDS ORDERED: HYDROmorphone 0.5 MG/0.5 ML Syringe ONE ×4 (09:24→10:01)
[2024-05-11] MEDS: Lactated Ringers 1,000 ML IV SCH (09:25)
[2024-05-11] MEDS ORDERED: Esmolol 100 MG/10 ML SDV ONE (09:31)
[2024-05-11] MEDS ORDERED: fentaNYL 250 MCG/5 ML SDV ONE (09:36)
[2024-05-11] MEDS: Gabapentin 300 MG Cap PO ONE (09:45)
[2024-05-11] MEDS: Acetaminophen 325 MG Tab PO ONE (09:45)
[2024-05-11] MEDS ORDERED: Lactated Ringers 1,000 ML ONE ×3 (09:49→12:04)
[2024-05-11] MEDS: Scopalamine 1mg/3day Transdermal Patch TRDERM ONE (10:13)
[2024-05-11] MEDS ORDERED: Rocuronium 50 MG/5 ML Vial ONE ×2 (10:21→11:31)
[2024-05-11] MEDS: EPINEPHrine 1 MG/ML SDV ONE (10:33)
[2024-05-11] MEDS: Bupivacaine 0.5% 30 ML SDV ONE (10:33)
[2024-05-11] MEDS: Lidocaine 1% with EPINEPHrine 1:100,000 20 ML MDV ONE (10:33)
[2024-05-11] MEDS ORDERED: fentaNYL 100 MCG/2 ML SDV ONE (11:21)
[2024-05-11] MEDS ORDERED: Naloxone 0.4 MG/ML SDV IVPUSH PRN (14:28)
[2024-05-11] MEDS ORDERED: HYDROmorphone 0.5 MG/0.5 ML Syringe IVPUSH PRN (14:32)
[2024-05-11] MEDS ORDERED: fentaNYL 100 MCG/2 ML SDV IVPUSH PRN (14:32)
[2024-05-11] MEDS: Sodium Chloride 0.9% 10 ML Syringe FLUSH SCH (16:17)
[2024-05-11] MEDS: Heparin Sodium 5,000 Units/ML Vial SUBCUT SCH (16:20)
[2024-05-11] MEDS: Ketorolac 30 MG/ML SDV IVPUSH SCH (16:20)
[2024-05-11] MEDS: Acetaminophen 325 MG Tab PO SCH (16:25)
[2024-05-11] MEDS: Dextrose 5%-0.45% NaCl 1,000 ML IV SCH (16:27)
[2024-05-11] MEDS: HYDROmorphone 0.5 MG/0.5 ML Syringe IVPUSH PRN (18:20)
[2024-05-11] MEDS: oxyCODONE 5 MG Tab PO PRN (22:52)
[2024-05-12 06:26] LABS: ANION GAP 15.9 (5-15); BUN/CREATININE RATIO 8.8 (14-18); CALCIUM 8.2 mg/dL (8.5-10.1); CREATININE 0.8 mg/dL (0.55-1.02); EST CRCL DRUG DOSING (CG) 101.84 mL/min; MAGNESIUM 1.5 mg/dL (1.8-2.4); PHOSPHORUS 3.1 mg/dL (2.6-4.7); POTASSIUM,K 3.9 mEq/L (3.5-5.1)
[2024-05-12] MEDS: Magnesium Sulfate/Water Premix 4 GM in Premix Bag 1 BAG IV ONE (08:06)
[2024-05-12] MEDS: oxyCODONE 5 MG Tab PO ONE (16:25)
[2024-05-12] MEDS: Lidocaine 4% 1 each Patch TOP SCH (17:33)
[2024-05-12] MEDS: oxyCODONE 5 MG Tab PO PRN (22:57)
[2024-05-13 06:27] LABS: BASOPHILS PERCENT AUTO 0.3 % (0.0-1.0); EOSINOPHILS ABSOLUTE AUTO 0.1 K/mm3 (0.0-0.4); EOSINOPHILS PERCENT AUTO 1.4 % (0.0-6.0); HEMATOCRIT 31.7 % (37.0-47.0); IMMATURE GRAN ABSOLUTE AUTO 0.08 K/mm3 (0.00-0.05); IMMATURE GRAN PERCENT AUTO 0.8 % (0.0-0.4); LYMPHOCYTES ABSOLUTE AUTO 1.1 K/mm3 (1.0-4.8); LYMPHOCYTES PERCENT AUTO 10.2 % (24.0-44.0); MEAN CORPUSCULAR HEMOGLOBIN 26.7 pg (28.0-32.0); MEAN CORPUSCULAR HGB CONC 32.8 g/dl (32.0-36.0); MEAN CORPUSCULAR VOLUME 81.5 fl (83.0-99.0); MEAN PLATELET VOLUME 8.6 fl (9.4-12.3); MONOCYTES ABSOLUTE AUTO 0.5 K/mm3 (0.0-0.8); MONOCYTES PERCENT AUTO 5.2 % (0.0-8.0); NEUTROPHILS ABSOLUTE AUTO 8.5 K/mm3 (1.8-7.7); NEUTROPHILS PERCENT AUTO 82.1 % (41.0-71.0); PLATELET COUNT,PLT 149 K/mm3 (150-400); RED BLOOD CELL COUNT 3.89 M/mm3 (4.10-5.30); WHITE BLOOD CELL COUNT,WBC 10.33 K/mm3 (3.9-11.3)
[2024-05-13 06:39] LABS: HEMOGLOBIN 10.4 gm/dl (12.0-16.0)
[2024-05-13 06:54] LABS: ANION GAP 13.3 (5-15); CALCIUM 8.5 mg/dL (8.5-10.1); CREATININE 0.7 mg/dL (0.55-1.02); EST CRCL DRUG DOSING (CG) 116.39 mL/min; MAGNESIUM 1.8 mg/dL (1.8-2.4); PHOSPHORUS 2.5 mg/dL (2.6-4.7); POTASSIUM,K 3.3 mEq/L (3.5-5.1)
[2024-05-13] MEDS: Ondansetron 4 MG Tab.DIS PO PRN (08:15)
[2024-05-13] MEDS: Potassium Chloride 20 MEQ Tab.ER PO ONE (08:37)
[2024-05-13] MEDS: Phosphorus #1 250 MG Tab PO ONE (08:37)
[2024-05-13] MEDS: Piperacillin/Tazobactam 4.5 GM in Sodium Chloride 0.9% 100 ML IV ONE (08:41)
[2024-05-13] MEDS: Ondansetron 4 MG Tab.DIS PO SCH (11:56)
[2024-05-13] MEDS: Piperacillin/Tazobactam 4.5 GM in Sodium Chloride 0.9% 100 ML IV SCH ×2 (11:58→23:56)
[2024-05-13] MEDS: Prochlorperazine 10 MG/2 ML SDV IVPUSH PRN (13:43)
[2024-05-13] MEDS: Sodium Chloride 0.9% 500 ML IV ONE ×2 (13:44→17:42)
[2024-05-13 19:59] LABS: BASOPHILS PERCENT AUTO 0.2 % (0.0-1.0); EOSINOPHILS ABSOLUTE AUTO 0.1 K/mm3 (0.0-0.4); EOSINOPHILS PERCENT AUTO 1.4 % (0.0-6.0); HEMATOCRIT 31.8 % (37.0-47.0); HEMOGLOBIN 10.5 gm/dl (12.0-16.0); IMMATURE GRAN ABSOLUTE AUTO 0.08 K/mm3 (0.00-0.05); IMMATURE GRAN PERCENT AUTO 0.9 % (0.0-0.4); LYMPHOCYTES PERCENT AUTO 11.2 % (24.0-44.0); MEAN CORPUSCULAR HEMOGLOBIN 26.9 pg (28.0-32.0); MEAN CORPUSCULAR VOLUME 81.5 fl (83.0-99.0); MEAN PLATELET VOLUME 8.5 fl (9.4-12.3); MONOCYTES ABSOLUTE AUTO 0.5 K/mm3 (0.0-0.8); MONOCYTES PERCENT AUTO 5.5 % (0.0-8.0); NEUTROPHILS ABSOLUTE AUTO 7.3 K/mm3 (1.8-7.7); NEUTROPHILS PERCENT AUTO 80.8 % (41.0-71.0); PLATELET COUNT,PLT 145 K/mm3 (150-400); WHITE BLOOD CELL COUNT,WBC 9.08 K/mm3 (3.9-11.3)
[2024-05-13] MEDS: fentaNYL 100 MCG/2 ML SDV IVPUSH ONE (20:56)
[2024-05-14 05:47] LABS: BASOPHILS PERCENT AUTO 0.2 % (0.0-1.0); EOSINOPHILS ABSOLUTE AUTO 0.2 K/mm3 (0.0-0.4); EOSINOPHILS PERCENT AUTO 2.2 % (0.0-6.0); HEMATOCRIT 30.4 % (37.0-47.0); HEMOGLOBIN 9.9 gm/dl (12.0-16.0); IMMATURE GRAN ABSOLUTE AUTO 0.12 K/mm3 (0.00-0.05); IMMATURE GRAN PERCENT AUTO 1.3 % (0.0-0.4); LYMPHOCYTES ABSOLUTE AUTO 1.3 K/mm3 (1.0-4.8); LYMPHOCYTES PERCENT AUTO 13.8 % (24.0-44.0); MEAN CORPUSCULAR HEMOGLOBIN 26.8 pg (28.0-32.0); MEAN CORPUSCULAR HGB CONC 32.6 g/dl (32.0-36.0); MEAN CORPUSCULAR VOLUME 82.4 fl (83.0-99.0); MONOCYTES ABSOLUTE AUTO 0.8 K/mm3 (0.0-0.8); MONOCYTES PERCENT AUTO 7.9 % (0.0-8.0); NEUTROPHILS ABSOLUTE AUTO 7.1 K/mm3 (1.8-7.7); NEUTROPHILS PERCENT AUTO 74.6 % (41.0-71.0); PLATELET COUNT,PLT 151 K/mm3 (150-400); RED BLOOD CELL COUNT 3.69 M/mm3 (4.10-5.30); WHITE BLOOD CELL COUNT,WBC 9.45 K/mm3 (3.9-11.3)
[2024-05-14 06:11] LABS: ANION GAP 12.4 (5-15); BUN/CREATININE RATIO 5.7 (14-18); CALCIUM 8.4 mg/dL (8.5-10.1); CREATININE 0.7 mg/dL (0.55-1.02); EST CRCL DRUG DOSING (CG) 116.39 mL/min; MAGNESIUM 1.8 mg/dL (1.8-2.4); PHOSPHORUS 3.3 mg/dL (2.6-4.7); POTASSIUM,K 3.4 mEq/L (3.5-5.1)
[2024-05-15 05:23] LABS: BASOPHILS PERCENT AUTO 0.4 % (0.0-1.0); EOSINOPHILS ABSOLUTE AUTO 0.2 K/mm3 (0.0-0.4); EOSINOPHILS PERCENT AUTO 2.5 % (0.0-6.0); HEMATOCRIT 31.1 % (37.0-47.0); HEMOGLOBIN 10.1 gm/dl (12.0-16.0); IMMATURE GRAN ABSOLUTE AUTO 0.04 K/mm3 (0.00-0.05); IMMATURE GRAN PERCENT AUTO 0.6 % (0.0-0.4); LYMPHOCYTES ABSOLUTE AUTO 1.1 K/mm3 (1.0-4.8); LYMPHOCYTES PERCENT AUTO 15.9 % (24.0-44.0); MEAN CORPUSCULAR HEMOGLOBIN 26.4 pg (28.0-32.0); MEAN CORPUSCULAR HGB CONC 32.5 g/dl (32.0-36.0); MEAN CORPUSCULAR VOLUME 81.4 fl (83.0-99.0); MEAN PLATELET VOLUME 8.5 fl (9.4-12.3); MONOCYTES ABSOLUTE AUTO 0.8 K/mm3 (0.0-0.8); MONOCYTES PERCENT AUTO 11.3 % (0.0-8.0); NEUTROPHILS ABSOLUTE AUTO 4.9 K/mm3 (1.8-7.7); NEUTROPHILS PERCENT AUTO 69.3 % (41.0-71.0); PLATELET COUNT,PLT 158 K/mm3 (150-400); RED BLOOD CELL COUNT 3.82 M/mm3 (4.10-5.30)
[2024-05-15] MEDS: Acetaminophen/oxyCODONE 325-5 MG Tab PO PRN (12:11)
[2024-05-15] MEDS: Famotidine 20 MG Tab PO SCH (12:37)
[2024-05-15] MEDS: Calcium Carbonate 500 MG Tab.Chew PO PRN (13:16)
[2024-05-16] MEDS: Levothyroxine 75 MCG Tab PO SCH (05:04)
[2024-05-16] MEDS ORDERED: Sodium Chloride 0.9% 10 ML Syringe FLUSH PRN (08:43)
[2024-05-16] MEDS: Iopamidol 612 MG/ML 100 ML Bottle IVPUSH ONE (08:57)
[2024-05-16 10:03] LABS: BASOPHILS PERCENT AUTO 0.3 % (0.0-1.0); EOSINOPHILS ABSOLUTE AUTO 0.1 K/mm3 (0.0-0.4); EOSINOPHILS PERCENT AUTO 1.9 % (0.0-6.0); HEMATOCRIT 30.6 % (37.0-47.0); HEMOGLOBIN 10.1 gm/dl (12.0-16.0); IMMATURE GRAN ABSOLUTE AUTO 0.07 K/mm3 (0.00-0.05); IMMATURE GRAN PERCENT AUTO 1.1 % (0.0-0.4); LYMPHOCYTES ABSOLUTE AUTO 1.2 K/mm3 (1.0-4.8); LYMPHOCYTES PERCENT AUTO 18.1 % (24.0-44.0); MEAN CORPUSCULAR VOLUME 81.8 fl (83.0-99.0); MEAN PLATELET VOLUME 8.2 fl (9.4-12.3); MONOCYTES ABSOLUTE AUTO 0.7 K/mm3 (0.0-0.8); NEUTROPHILS ABSOLUTE AUTO 4.3 K/mm3 (1.8-7.7); NEUTROPHILS PERCENT AUTO 67.6 % (41.0-71.0); PLATELET COUNT,PLT 184 K/mm3 (150-400); RED BLOOD CELL COUNT 3.74 M/mm3 (4.10-5.30); WHITE BLOOD CELL COUNT,WBC 6.35 K/mm3 (3.9-11.3)
[2024-05-16] MEDS: D5 1/2 NS w/ 20 mEq/L KCl 1,000 ML IV SCH (13:05)
[2024-05-17 04:46] LABS: HEMATOCRIT 30.2 % (37.0-47.0); HEMOGLOBIN 9.9 gm/dl (12.0-16.0); MEAN CORPUSCULAR HEMOGLOBIN 26.6 pg (28.0-32.0); MEAN CORPUSCULAR HGB CONC 32.8 g/dl (32.0-36.0); MEAN CORPUSCULAR VOLUME 81.2 fl (83.0-99.0); MEAN PLATELET VOLUME 8.4 fl (9.4-12.3); PLATELET COUNT,PLT 213 K/mm3 (150-400); RED BLOOD CELL COUNT 3.72 M/mm3 (4.10-5.30); WHITE BLOOD CELL COUNT,WBC 6.59 K/mm3 (3.9-11.3)
[2024-05-17 05:24] LABS: BUN/CREATININE RATIO 5.7 (14-18); CALCIUM 8.8 mg/dL (8.5-10.1); CREATININE 0.7 mg/dL (0.55-1.02); EST CRCL DRUG DOSING (CG) 116.39 mL/min; MAGNESIUM 1.7 mg/dL (1.8-2.4); PHOSPHORUS 3.8 mg/dL (2.6-4.7)
[2024-05-17] MEDS: Potassium Chloride 10 MEQ in Premix Bag 1 BAG IV ONE (07:45)
[2024-05-17] MEDS: Ibuprofen 600 MG Tab PO PRN (07:46)
[2024-05-17] MEDS: HYDROmorphone 0.5 MG/0.5 ML Syringe IVPUSH ONE (08:59)
== END 2024-05-17 09:15 | DRG 711 ==
LOC: JD.SDS 08:57 → JD.MS 14:23
PROVIDERS: ADMIT Surgery; ATTEND Surgery
PROC: 0WQF0ZZ Repair Abdominal Wall, Open Approach (ICD-10-PCS; 2024-05-11)
PROC: 0WJF4ZZ Inspection of Abdominal Wall, Percutaneous Endoscopic Approach (ICD-10-PCS; 2024-05-11)
PROC: 0DT84ZZ Resection of Small Intestine, Percutaneous Endoscopic Approach (ICD-10-PCS; principal; 2024-05-11 09:45)
DX: T81.49XA Infection following a procedure, other surgical site, initial encounter (principal); K43.6 Other and unspecified ventral hernia with obstruction, without gangrene; K56.50 Intestinal adhesions [bands], unspecified as to partial versus complete obstruction; D64.9 Anemia, unspecified; E03.9 Hypothyroidism, unspecified; F41.9 Anxiety disorder, unspecified; F32.A Depression, unspecified; Z88.2 Allergy status to sulfonamides; Z90.89 Acquired absence of other organs; Z98.890 Other specified postprocedural states
CPT/HCPCS: 00840; 36415; 74177; 74177-26; 80048; 81025; 82947; 83735; 84100; 85025; 85027; 94760; 94761; A9270-GY; J0171; J0665; J0690; J0780; J1100; J1171; J1200; J1644; J1885; J2250; J2405; J2543; J2704; J3010; J3475; J3480; J3490; J7030; J7120; J7799; Q9967

== ENCOUNTER 2024-05-27 17:41 | Emergency (ER) | payer BC | END 2024-05-27 20:02 | disposition home or self-care (01) | LOC: JD.ED 17:41 | DX: J90 Pleural effusion, not elsewhere classified (principal); J98.11 Atelectasis; E03.9 Hypothyroidism, unspecified; Z86.16 Personal history of COVID-19; Z88.2 Allergy status to sulfonamides; Z79.899 Other long term (current) drug therapy | CPT/HCPCS: 71101-26-RT; 71101-RT; 99283 ==

== ENCOUNTER 2024-06-16 09:29 | Emergency (ER) | payer BC ==
[2024-06-16] MEDS ORDERED: Sodium Chloride 0.9% 10 ML Syringe FLUSH PRN (09:59)
[2024-06-16] MEDS: Sodium Chloride 0.9% 10 ML Syringe FLUSH PRN (10:28)
[2024-06-16] MEDS: methylPREDNISolone Sodium Succinate 125 MG/2 ML SDV IVPUSH ONE (10:28)
[2024-06-16] MEDS: Famotidine 20 MG/2 ML SDV IVPUSH ONE (10:28)
[2024-06-16 10:33] LABS: BASOPHILS PERCENT AUTO 0.4 % (0.0-1.0); EOSINOPHILS ABSOLUTE AUTO 0.2 K/mm3 (0.0-0.4); IMMATURE GRAN ABSOLUTE AUTO 0.02 K/mm3 (0.00-0.05); IMMATURE GRAN PERCENT AUTO 0.3 % (0.0-0.4); LYMPHOCYTES ABSOLUTE AUTO 1.4 K/mm3 (1.0-4.8); LYMPHOCYTES PERCENT AUTO 19.2 % (24.0-44.0); MEAN CORPUSCULAR HEMOGLOBIN 26.9 pg (28.0-32.0); MEAN CORPUSCULAR HGB CONC 32.2 g/dl (32.0-36.0); MEAN CORPUSCULAR VOLUME 83.5 fl (83.0-99.0); MEAN PLATELET VOLUME 8.4 fl (9.4-12.3); MONOCYTES ABSOLUTE AUTO 0.5 K/mm3 (0.0-0.8); MONOCYTES PERCENT AUTO 6.8 % (0.0-8.0); NEUTROPHILS ABSOLUTE AUTO 5.3 K/mm3 (1.8-7.7); NEUTROPHILS PERCENT AUTO 71.3 % (41.0-71.0); PLATELET COUNT,PLT 203 K/mm3 (150-400); RED BLOOD CELL COUNT 4.31 M/mm3 (4.10-5.30)
[2024-06-16 10:42] LABS: HEMOGLOBIN 11.6 gm/dl (12.0-16.0)
[2024-06-16] MEDS: Sodium Chloride 0.9% 100 ML IV SCH (11:00)
[2024-06-16] MEDS: Iopamidol 755 Mg/ML 100 ML Bottle IVPUSH ONE (11:00)
[2024-06-16 11:28] LABS: A/G RATIO 0.8 (1-2); ALANINE AMINOTRANSFERASE,ALT 16 U/L (14-59); ALBUMIN 3.7 g/dl (3.4-5.0); ALKALINE PHOSPHATASE 102 U/L (46-116); ANION GAP 14.6 (5-15); ASPARTATE AMNIOTRANSFERASE,AST 12 U/L (15-37); BILIRUBIN TOTAL 0.6 mg/dL (0.2-1.0); BLOOD UREA NITROGEN,BUN 15 mg/dL (7-18); BUN/CREATININE RATIO 21.4 (14-18); CALCIUM 9.4 mg/dL (8.5-10.1); CARBON DIOXIDE,CO2 25 mEq/L (21-32); CHLORIDE,CL 105 mEq/L (98-107); CREATININE 0.7 mg/dL (0.55-1.02); EST CRCL DRUG DOSING (CG) 116.39 mL/min; ESTIMATED GFR 118 mL/min (>60); GLUCOSE RANDOM 90 mg/dL (70-99); MAGNESIUM 1.9 mg/dL (1.8-2.4); POTASSIUM,K 3.6 mEq/L (3.5-5.1); PROTEIN TOTAL,TP 8.2 g/dl (6.4-8.2); SODIUM,NA 141 mEq/L (136-145)
[2024-06-16 11:31] LABS: TROPONIN I HIGH SENSITIVITY < 4 pg/mL (<=51)
== END 2024-06-16 15:20 ==
LOC: JD.ED 09:29
DX: J90 Pleural effusion, not elsewhere classified (principal); E03.9 Hypothyroidism, unspecified; Z79.890 Hormone replacement therapy; Z79.899 Other long term (current) drug therapy; Z88.2 Allergy status to sulfonamides
CPT/HCPCS: 36415; 71275; 80053; 83735; 83880; 84484; 85025; 93005; 96374; 96375; 99285; J2919; J3490; Q9967

== ENCOUNTER 2024-12-09 14:44 | Emergency (ER) | payer BC | END 2024-12-09 17:00 | disposition home or self-care (01) | LOC: JD.ED 14:44 | DX: R07.89 Other chest pain (principal); E03.9 Hypothyroidism, unspecified; Z87.09 Personal history of other diseases of the respiratory system; Z88.2 Allergy status to sulfonamides; Z88.8 Allergy status to other drugs, medicaments and biological substances; Z79.890 Hormone replacement therapy; Z86.16 Personal history of COVID-19 | CPT/HCPCS: 71045; 71045-26; 99283; 99284 ==